=== PATIENT | male | born 1950 | race American Indian/Alaskan Native ===

== ENCOUNTER 2021-12-30 15:13 | Emergency (ER) | payer MEDICARE ==
[2021-12-30 16:10] VITALS: BP 152/81
[2021-12-30] MEDS ORDERED: DOXYCYCLINE 100 MG CAP PO ONE (23:22)
[2021-12-30] MEDS ORDERED: ACETAMINOPHEN 500 MG TAB PO ONE (23:22)
[2021-12-30] MEDS ORDERED: diphenhydrAMINE 25 MG CAP PO ONE (23:22)
--- NOTE | 2021-12-30 23:30 | Emergency Department Report ---
ED General Adult HPI - General Chief complaint: Skin/Abscess/Foreign Body Stated complaint: TICK BITES Source: patient Mode of arrival: Ambulatory Limitations: No Limitations - History of Present Illness Initial comments: Patient is a 71-year-old -[place] male with a history of hypertension who presents to the ED with complaint of acute onset persistent diffuse itchy er ythematous maculopapular painful rashes on his upper and lower extremities bilaterally for the last 4 days. Patient states that he noticed that this was as a result of tick bites which he personally removed from his skin. Patient states that in the last 4 days the symptoms have been progressively getting worse with multiple redness around the tick bites. Patient denies nausea and vomiting, fever, chills, body aches and pains, headache, chest pain, shortness of breath, dizziness, syncope, joint pains or low back pain. MD Complaint: Painful itchy erythematous maculopapular rashes due to tick bite -: Sudden, days(s) (4) Location: back, abdomen, upper extremity, lower extremity Radiation: non-radiation Severity scale (0 -10): 7 Quality: burning, aching, sharp Consistency: constant Improves with: none Worsens with: none Associated Symptoms: denies other symptoms, rash (Mild erythematous maculopapular rashes diffusely). denies: confusion, chest pain, cough, diaphoresis, fever/chills, headaches, loss of appetite, malaise, nausea/vomiting, seizure, shortness of breath, syncope, weakness Treatments Prior to Arrival: none - Related Data Previous Rx's Medication Instructions Recorded Last Taken Type Doxycycline Hyclate 100 mg PO Q12H #28 cap 12/30/21 Unknown Rx Ibuprofen [Motrin] 600 mg PO Q8H PRN #30 tablet 12/30/21 Unknown Rx ED Review of Systems ROS: Stated complaint: TICK BITES Other details as noted in HPI Constitutional: denies: chills, fever Eyes: denies: eye pain, eye discharge, vision change ENT: denies: ear pain, throat pain Respiratory: denies: cough, shortness of breath, wheezing Cardiovascular: denies: chest pain, palpitations Endocrine: no symptoms reported Gastrointestinal: denies: abdominal pain, nausea, vomiting, diarrhea, constipation, hematemesis, hematochezia Genitourinary: denies: urgency, dysuria, frequency, hematuria, testicular pain, testicular mass Musculoskeletal: denies: back pain, joint swelling, arthralgia Skin: rash, change in color, pruritus. denies: lesions Neurological: denies: headache, weakness, paresthesias Psychiatric: denies: anxiety, depression Hematological/Lymphatic: denies: easy bleeding, easy bruising ED Past Medical Hx - Past Medical History Previous Medical History?: Yes Hx Hypertension: Yes - Medications Home Medications: Home Medications Medication Instructions Recorded Confirmed Last Taken Type Doxycycline Hyclate 100 mg PO Q12H #28 cap 12/30/21 Unknown Rx Ibuprofen [Motrin] 600 mg PO Q8H PRN #30 tablet 12/30/21 Unknown Rx ED Physical Exam - General Limitations: No Limitations General appearance: alert, in no apparent distress - Head Head exam: Present: atraumatic, normocephalic, normal inspection - Eye Eye exam: Present: normal appearance, PERRL, EOMI Pupils: Present: normal accommodation - ENT ENT exam: Present: normal exam, normal orophraynx, mucous membranes moist, TM's normal bilaterally, normal external ear exam - Neck Neck exam: Present: normal inspection, full ROM. Absent: tenderness - Respiratory Respiratory exam: Present: normal lung sounds bilaterally. Absent: respiratory distress, wheezes, rales, rhonchi, chest wall tenderness, other - Cardiovascular Cardiovascular Exam: Present: regular rate, normal rhythm, normal heart sounds. Absent: systolic murmur, diastolic murmur, rubs, gallop - GI/Abdominal GI/Abdominal exam: Present: soft, normal bowel sounds. Absent: tenderness, guarding, rebound, hyperactive bowel sounds, hypoactive bowel sounds, organomegaly - Extremities Exam Extremities exam: Present: normal inspection, full ROM, normal capillary refill. Absent: tenderness - Back Exam Back exam: Present: normal inspection, full ROM. Absent: tenderness, CVA tenderness (R), CVA tenderness (L), muscle spasm, paraspinal tenderness, vertebral tenderness - Neurological Exam Neurological exam: Present: alert, oriented X3, CN II-XII intact, normal gait, reflexes normal - Psychiatric Psychiatric exam: Present: normal affect, normal mood - Skin Skin exam: Present: warm, dry, intact, rash (Mild erythematous maculopapular rashes diffusely in upper and lower extremities.), erythema. Absent: normal color ED Course Vital Signs 12/30/21 16:07 Temperature 98.5 F Pulse Rate 96 H Respiratory 17 Rate Blood Pressure 152/81 [Left] O2 Sat by Pulse 97 Oximetry ED Medical Decision Making - Medical Decision Making This is a 71-year-old -[place] male with a history of hypertension who presents to the ED with complaint of acute onset persistent diffuse itchy erythematous maculopapular painful rashes on his upper and lower extremities bilaterally for the last 4 days. Patient states that he noticed that this was a s a result of tick bites which he personally removed from his skin. Patient states that in the last 4 days the symptoms have been progressively getting worse with multiple redness around the tick bites. In the ED, patient is alert and oriented x3 and is not in any distress. Patient is hemodynamically stable. Patient was treated in the ED for pain and also given initial prophylactic oral antibiotics for suspected tick bite, doxycycline 100 mg p.o. x1. Patient was discharged home on medications and advised to follow-up with his primary care physician in 7 to 10 days for reevaluation or return to the ED immediately if symptoms get worse. - Differential Diagnosis Tick bite cellulitis; irritant dermatitis; folliculitis; Critical care attestation.: If time is entered above; I have spent that time in minutes in the direct care of this critically ill patient, excluding procedure time. ED Disposition Clinical Impression: Itching with irritation, Cellulitis of left leg without foot Infected tick bite of lower leg Qualifiers: Encounter type: initial encounter Laterality: left Qualified Code(s): S80.862A - Insect bite (nonvenomous), left lower leg, initial encounter; L08.9 - Local infection of the skin and subcutaneous tissue, unspecified; W57.XXXA - Bitten or stung by nonvenomous insect and other nonvenomous arthropods, initial encounter Disposition: 01 HOME / SELF CARE / HOMELESS Is pt being admited?: No Does the pt Need Aspirin: No Condition: Stable Instructions: Tick Bite Information, Adult, [id number], Cellulitis, Adult, [id number], Lyme Disease, Insect Bite, Adult, [id number] Additional Instructions: Take medication with food, drink plenty of fluids and follow-up with your primary care physician in 7 to 10 days for reevaluation. Return to the ED immediately if symptoms get worse. Prescriptions: Doxycycline Hyclate 100 mg PO Q12H #28 cap Ibuprofen [Motrin] 600 mg PO Q8H PRN #30 tablet PRN Reason: Pain Referrals: [facility] [Provider Group] - 3-5 Days Time of Disposition: 23:35 Print Language: PERSIAN
== END 2021-12-31 00:44 | disposition home or self-care (01) ==
LOC: ED 15:13
DX: S80.862A Insect bite (nonvenomous), left lower leg, initial encounter (principal); L03.116 Cellulitis of left lower limb; L08.9 Local infection of the skin and subcutaneous tissue, unspecified; I10 Essential (primary) hypertension; Z79.899 Other long term (current) drug therapy; W57.XXXA Bitten or stung by nonvenomous insect and other nonvenomous arthropods, initial encounter; Y93.89 Activity, other specified; Y92.89 Other specified places as the place of occurrence of the external cause; Y99.8 Other external cause status
CPT/HCPCS: 99282

== ENCOUNTER 2022-04-09 17:37 | Emergency (ER) | payer MEDICARE ==
[2022-04-09 18:15] VITALS: BP 198/103
[2022-04-09] MEDS ORDERED: traMADol 50 MG TAB PO ONE (20:52)
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
== END 2022-04-09 22:15 | disposition home or self-care (01) ==
LOC: ED 17:37
DX: M79.10 Myalgia, unspecified site (principal); Z88.0 Allergy status to penicillin; I10 Essential (primary) hypertension; V89.2XXA Person injured in unspecified motor-vehicle accident, traffic, initial encounter; Y93.89 Activity, other specified; Y92.89 Other specified places as the place of occurrence of the external cause; Y99.8 Other external cause status
CPT/HCPCS: 99283